=== PATIENT | male | born 1995 | race Caucasian/White ===

== ENCOUNTER 2024-03-03 07:35 | Emergency (ER) | payer OTHER, SELFPAY ==
[2024-03-03 07:35] VITALS: BP 177/120; PULSE 82; RESP 16; TEMP 36.2; O2SAT 97; BMI 26.4
--- NOTE | 2024-03-03 07:53 | CT_ITS ---
STUDY: CT ABDOMEN AND PELVIS WITH CONTRAST REASON FOR EXAM: Male, 28 years old. Right lower quadrant abdominal pain RADIATION DOSAGE (If Supplied By Facility): CTDIvol = ( 11.96 ) mGy, DLP = ( 579.21 ) mGycm TECHNIQUE: Transaxial images were obtained from the dome of the diaphragm to the symphysis pubis without oral contrast. IV 100mL Isovue-370 was administered. Sagittal and coronal images were reconstructed. Individualized dose optimization techniques were used for this CT. COMPARISON: None. FINDINGS: The visualized lung bases are unremarkable. The visualized portions of the heart are within normal limits. Normal liver. Normal gallbladder and extrahepatic biliary system. Normal spleen. Normal pancreas. Normal bilateral adrenal glands. Normal right kidney. Normal left kidney. Normal visualized stomach. There is evidence of some potential wall thickening of the terminal ileum as well as normality of the cecum and ascending colon with increased markings in the surrounding mesenteric fat. There is evidence of mesenteric adenopathy in the right lower quadrant. Findings are suggestive of inflammatory bowel disease. The appendix is not seen with certainty. Normal abdominal aorta. Normal inferior vena cava. Normal retroperitoneum. Normal urinary bladder. Normal abdominal wall. Normal osseous structures. CT/Abdomen/Pelvis W IV Cont ONLY IMPRESSION: Findings suggestive of a inflammatory bowel disease involving the terminal ileum and cecum and descending colon. Mesenteric adenitis. Electronically Signed: Isidro Emanuel MD at 9:01 EDT ,
--- NOTE | 2024-03-03 07:54 | EX.ED.DYSGE1 ---
HPI History of Present Illness Chief Complaint: Abd Pain Detail of Chief Complaint: Abdominal pain with diarrhea Informant: patient and spouse/S.O. Onset/Context/Timing Onset: Days (Onset Sunday) Context: Sudden Onset Timing: Continuous and Waxes and wanes Quality: Discomfort with sensation of feeling bloated Location: Maximum tenderness right lower quadrant Current Severity: Mild Maximum Severity: Moderate Worsened by: Nothing specific Relieved by: Nothing Associated Symptoms Associated Symptoms: Nausea and diarrhea that started Sunday. Narrative Narrative: Patient is a 28-year-old male. Patient had viral-like upper respiratory infections 1 week prior to the onset of his abdominal pain and nausea with diarrhea. Patient states Sunday evening he had 2 large loose watery stools. He did not notice any blood or mucus. He had 3 loose stools on Sunday and 2 already this morning. There is no history of Crohn's disease or ulcerative colitis in the family. He states his appetite is diminished. He denies fever or chills. He denies respiratory or cardiac symptoms. He denies urologic symptoms. He denies back pain or any referred pain. He states food he ate Sunday did not taste unusual to him. Prior similar symptoms: No Recent Illness/Hospitalization: No PFSH PFSH Medical History no medical history no medical history Home Medications ?Medication ?Instructions ?Recorded ?Last Taken ?Type ciprofloxacin HCl 500 mg tablet 500 mg PO BID #14 TABLETS 03/03/24 Unknown Rx metronidazole 500 mg tablet 500 mg PO Q8H #21 tabs 03/03/24 Unknown Rx prednisone 20 mg tablet 20 mg PO DAILY #30 tabs 03/03/24 Unknown Rx Allergy/AdvReac Type Severity Reaction Status Date / Time No Known Allergies Allergy Verified 03/03/24 07:35 Family History no significant family his no significant family history Surgical History no surgical history no surgical history Social History (Updated 03/03/24 @ 07:[address] Andrews Salgado MD) household members: spouse Smoking Status: Current every day smoker tobacco type: cigarettes ROS ROS ED Constitutional Constitutional ED: Denies chills, fever(s) or subjective Eyes Eyes: Denies blurry vision or change in vision ENT ENT ED: Denies ear pain, rhinorrhea or sore throat Cardiovascular Cardiovascular: Denies chest pain, palpitations or racing heartbeat Respiratory/Chest Respiratory/Chest: Denies cough, dyspnea or dyspnea on exertion Gastrointestinal Gastrointestinal: Reports abdominal pain, constipation, diarrhea, nausea and other Details: Patient did have constipation prior to diarrhea. He did not take any laxatives. ; Denies melena or vomiting Genitourinary Genitourinary ED: Denies dysuria, hematuria or urinary frequency Musculoskeletal Musculoskeletal: Denies arthralgias, back pain or myalgias Integumentary Denies abscess, Abrasions or rash Neurologic Neurologic: Denies weakness Psychiatric Psychiatric: Denies anxiety or depression Hematologic/Lymphatic Hematologic/Lymphatic: Reports systems reviewed and no addt'l complaints, except as documented EXAM Physical Exam Const Vital Signs: 03/03/24 07:35 Temperature 97.2 F L Temperature Source Temporal Pulse Rate 82 Respiratory Rate 16 Blood Pressure 177/120 H Blood Pressure Mean 139 Pulse Ox 97 Oxygen Delivery Method Room Air Positive well nourished and well developed Constitutional Narrative: Patient does not look well. He is in no obvious discomfort. General Appearance ED: well developed; Negative for cyanotic, diaphoretic or pallor HEENT Reports moist mucous membranes HEENT Narrative: Head is atraumatic no cephalic. Ears normal. Nares patent. Eyes PERRL and EOMs intact bilaterally General Eye ED: Negative for pale conjunctiva or scleral icterus Neck no lymphadenopathy, supple and no JVD Resp normal respiratory effort and clear to auscultation bilaterally Cardio regular rate, regular rhythm, S1 normal heart sound, S2 normal heart sound and no murmurs GI no masses; Negative for normal to inspection, nondistended, normoactive bowel sounds, non-tender, non-distended or hepatosplenomegaly GI Narrative: Abdomen slightly tympanitic. Area of most discomfort is in the proximity of McBurney's point with guarding. There is no tenderness to percussion or Rovsing sign. There is no paraspinal megaly. Negative clinical Culver sign. Palpation: soft Back/Spine no CVA tenderness Extremity normal to inspection General Extremety ED: Negative for edema or tenderness General Extremity: Negative for edema Neuro oriented x3, CN's II-XII intact bilaterally and no sensory deficits noted Sensorium / Orientation: alert Psych mental status grossly normal Skin no rashes or lesions noted, no wounds and skin turgor normal General Skin Exam: elasticity normal; Negative for jaundice or pallor MDM MDM MDM Narrative Medical decision making narrative: With initial upper respiratory symptoms prior to GI symptoms and tenderness of McBurney's point need to evaluate for mesenteric adenitis versus atypical presentation of appendicitis. Also on the differential need to consider regional enteritis. There is no family history per patient. Will obtain CBC, electrolyte panel and CT of the abdomen and pelvis with IV contrast. Lab Data Attestation: I reviewed the patient's lab results. Lab results narrative: CBC is normal. Electrolyte panel is remarkable for slight elevation of glucose of 115 with normal CO2 anion gap. Labs: Laboratory Results - last 24 hr 03/03/24 08:10 WBC 6.6 RBC 5.15 Hgb 15.0 Hct 45.0 MCV 87.4 MCH 29.1 MCHC 33.3 RDW Std Deviation 39.0 RDW Coeff of Elif 12.1 Plt Count 257 MPV 9.6 Immature Gran % (Auto) 0.500 Neut % (Auto) 54.9 Lymph % (Auto) 30.2 Hettinger % (Auto) 10.0 Eos % (Auto) 3.9 Baso % (Auto) 0.5 Absolute Neuts (auto) 3.7 Absolute Lymphs (auto) 2.00 Nucleated RBC % 0 Sodium 139 Potassium 4.3 Chloride 109 H Carbon Dioxide 26.0 Anion Gap 4 L BUN 15 Creatinine 0.93 Estim Creat Clear Calc 125.95 Est GFR (MDRD) Af Amer 124 Est GFR (MDRD) Non-Af 102 BUN/Creatinine Ratio 16.1 Glucose 115 H Calcium 9.6 Radiography Diagnostic Testing: Clinical Impression(s) from Imaging Studies Abdomen/Pelvis CT 03/03/24 07:53 IMPRESSION: Findings suggestive of a inflammatory bowel disease involving the terminal ileum and cecum and descending colon. Mesenteric adenitis. Electronically Signed: Isidro Emanuel MD at 9:01 EDT , CT of the abdomen pelvis does not in my opinion reveal evidence of appendicitis. There is evidence of adenitis and inflammation. Will wait for formal radiology interpretation. Findings are can concerning for regional enteritis. Dr. Watson is on for GI. Will discuss case with him. Management Discussion w/another healthcare provider: Environmental Planning Engineer (Spoke with Dr. Watson. He would like patient started on prednisone 20 mg a day and course of metronidazole and ciprofloxacin. Patient to call office and he will be seen in 2 to 3 weeks.) Discharge Plan Triage Chief Complaint: Abd Pain ED Provider: Andrews Salgado Dx/Rx/DC Orders Clinical Impression: Crohn's regional enteritis, Elevated blood-pressure reading without diagnosis of hypertension Instructions: ED Crohn's Disease, ED Hypertension, To Be Confirmed Prescriptions: New prednisone 20 mg tablet 20 mg PO DAILY Qty: 30 0RF ciprofloxacin HCl 500 mg tablet 500 mg PO BID Qty: 14 0RF metronidazole 500 mg tablet 500 mg PO Q8H Qty: 21 0RF Primary Care Provider: Care Physician,No Primary Referrals: Friend,Randell, [Med Staff - Active Staff] - 1-2 Weeks NOT,DEFINED [Non-Staff] - Print Language: Jamaican Disposition Disposition: Home, Self Care
[2024-03-03] MEDS: 0.9% Normal Saline (1000mL) 1,000 ML 125 ML IV (08:09)
[2024-03-03 08:14] LABS: Absolute Neutrophil Count 3.7 X10^3/uL (2.0-7.7); Basophil# 0.03 X10^3/uL; Basophil% 0.5 % (0-1); Eosinophil# 0.26 X10^3/uL; Eosinophils% 3.9 % (0-5); Lymphocyte % 30.2 % (19-41); Mean Corp Hgb Conc 33.3 g/dL (32-36); Mean Corpuscular Hgb 29.1 pg (27.0-32.0); Mean Corpuscular Volume 87.4 fL (80-94); Mean Platelet Vol. 9.6 fl (6.2-12.0); Monocyte# 0.66 X10^3/uL; NRBC Flagged by Analyzer 0 % (0-5); Neutrophil # 3.65 X10^3/uL (2.7-7.7); Neutrophil % 54.9 % (47-70); Platelet Count 257 K/mm3 (150-450); RBC Distribution Width CV 12.1 % (11.6-14.6); Red Blood Count 5.15 M/mm3 (4.6-6.2); White Blood Count 6.6 K/mm3 (4.4-11.0)
[2024-03-03 08:33] LABS: Anion Gap 4 (5-15); BUN 15 mg/dL (7-18); BUN/Creat Ratio 16.1 RATIO (10-20); Calcium,Total 9.6 mg/dL (8.5-10.1); Chloride 109 mmol/L (98-107); Creatinine, Serum 0.93 mg/dL (0.70-1.30); EST Glomerular Filtration Rate 102 mL/min (>60); Est Glom Filt Rate - Afr Amer 124 mL/min (>60); Estimated Creatinine Clearance 125.95 ml/min; Glucose 115 mg/dL (74-106); Potassium 4.3 mmol/L (3.5-5.1); Sodium Level 139 mmol/L (136-145)
[2024-03-03 09:35] VITALS: BP 132/71; PULSE 73; RESP 16; O2SAT 98
[2024-03-03 10:01] VITALS: BP 125/78; PULSE 70; RESP 16; TEMP 36.6; O2SAT 99
== END 2024-03-03 10:07 | disposition home or self-care (01) ==
PROVIDERS: Emergency Provider Emergency Medicine; Visit Provider Emergency Medicine
DX: K50.80 Crohn's disease of both small and large intestine without complications (principal); R03.0 Elevated blood-pressure reading, without diagnosis of hypertension; F17.210 Nicotine dependence, cigarettes, uncomplicated
CPT/HCPCS: 74177; 80048; 85025; 96360; 96361; 99283; J7030; Q9967; A4216

== ENCOUNTER → 2024-03-18 | Outpatient (CLI) | payer OTHER, SELFPAY ==
[2024-03-18 09:13] LABS: Erythrocyte Sedimentation Rate 15 mm/hr (0-20)
[2024-03-18 09:46] LABS: CRP 5.94 mg/L (0.0-3.0)
[2024-03-21 15:08] LABS: Anti-Centromere B Ab <0.2 AI (0.0-0.9); Anti-Chromatin <0.2 AI (0.0-0.9); Anti-Jo <0.2 AI (0.0-0.9); Anti-Scleroderma-70 AB <0.2 AI (0.0-0.9); Anti-dsDNA Ab <1 IU/mL (0-9); Beef <0.10 kU/L (Class 0); Chocolate <0.10 kU/L (Class 0); Codfish <0.10 kU/L (Class 0); Corn 0.14 kU/L (Class 0/I); Egg, Whole <0.10 kU/L (Class 0); Milk (Cow) <0.10 kU/L (Class 0); Mussels <0.10 kU/L (Class 0); Peanut 0.35 kU/L (Class I); Pork <0.10 kU/L (Class 0); RNP Ab <0.2 AI (0.0-0.9); SJOGREN'S Anti-SS-A test < 0.2 AI (0.0-0.9); SJOGREN'S Anti-SS-B test < 0.2 AI (0.0-0.9); Salmon <0.10 kU/L (Class 0); Shrimp <0.10 kU/L (Class 0); Smith Ab <0.2 AI (0.0-0.9); Soybean 0.12 kU/L (Class 0/I); Tuna <0.10 kU/L (Class 0); Wheat 0.22 kU/L (Class 0/I)
[2024-03-21 16:11] LABS: ACCA 19 units (0-90); ALCA 8 units (0-60); AMCA 42 units (0-100); Alpha-1-Globulins 0.3 g/dL (0.0-0.4); Cytoplasmic Ab (C-ANCA) <1:20 titer (Neg:<1:20); Deamidated Gliadin IgA 4 units (0-19); Deamidated Gliadin IgG 2 units (0-19); Endomysial Antibody IgA Negative (Negative); HEPATITIS B SURFACE AG Negative (Negative); Hep C Antibodies Non Reactive (Non Reactive); Hepatitis A IgM Antibody Negative (Negative); Hepatitis B Core AB IgM Negative (Negative); IgG, Quant 1121 mg/dL (603-1613); Immunoglobulin A 181 mg/dL (90-386); Immunoglobulin E 47 IU/mL (6-495); Immunoglobulin G, Subclass 1 490 mg/dL (248-810); Immunoglobulin G, Subclass 2 335 mg/dL (130-555); Immunoglobulin G, Subclass 3 34 mg/dL (15-102); Immunoglobulin G, Subclass 4 70 mg/dL (2-96); Immunoglobulin M 45 mg/dL (20-172); PROEL- TOTAL PROTEIN 7.2 g/dL (6.0-8.5); Perinuclear Ab (P-ANCA) <1:20 titer (Neg:<1:20); QNTFERON TB Mitogen Value > 10.00 IU/mL (.); QNTFERON TB Nil Value 0.06 IU/mL (.); QNTFERON TB1+ Ag Value 0.06 IU/mL (.); QNTFERON TB2+ Ag Value 0.06 IU/mL (.); QNTIFERON TB Positive Criteria Negative (Negative); gASCA 57 units (0-50); t-Transglutaminase IgA <2 U/mL (0-3)
== END | disposition home or self-care (01) ==
PROVIDERS: Referring Provider Internal Medicine Gastroenterology; Visit Provider Internal Medicine Gastroenterology
DX: K50.90 Crohn's disease, unspecified, without complications (principal)
CPT/HCPCS: 36415; 80074; 82784; 82785; 82787; 83516; 84165; 85652; 86003; 86005; 86036; 86037; 86140; 86225; 86235; 86255; 86334; 86480; 86671

== ENCOUNTER 2024-04-18 05:29 | Day surgery (SDC) | payer OTHER, SELFPAY ==
[2024-04-18] VITALS (7 sets, daily range): BP systolic 109–131; BP diastolic 57–84; PULSE 78–101; RESP 16–18; TEMP 36.2–36.4; O2SAT 97–99; BMI 25.4
--- NOTE | 2024-04-18 | COLBX_PTH ---
PATIENT: KARLENE NOWAK LOC: EN U#:[id number] AGE/SX: 28/M ROOM: RE04/18/[address]: Dr. Randell Watson DO : 1995 BED: DIS: 04/18/2024 SPEC #: [id number] RECD: 04/18/24 12:50 STATUS: JHOAN GEOVANNA #: [id number] KIMI: 04/18/24 00:[address]: Randell Watson DEPT: SURGICAL PATHOLOGY RECD BY: Jimmy Rod ENTERED: 04/18/24 12:51 SP TYPE: COLON BX OTHR DR: Krupa Primary Care Phys Tissues: A - Ileum, NOS B - COLON BIOPSY C - Rectum, NOS Procedures: Surgery Specimen Level IV HEADER OPERATION: Colonoscopy with biopsies PRE-OP DIAGNOSIS: Crohn's disease TISSUE SUBMITTED: A- Terminal ileum biopsy, B- Random colon biopsy, C- Rectal polyp biopsy MICROSCOPIC DIAGNOSIS A. Terminal ileum, biopsy: Fragments of small intestinal mucosa, no pathologic diagnosis. B. Colon, random biopsy: Fragments of colonic mucosa, no pathologic diagnosis. C. Rectal polyp, biopsy: Fragments of colonic mucosa, no pathologic diagnosis. Braden 04/21/2024 MICROSCOPIC DESCRIPTION Slides are reviewed. GROSS DESCRIPTION A. Received in fixative is one container labeled with the patient's name and designated Terminal ileum biopsy. The specimen consists of two irregular fragments of light vasquez soft tissue that in aggregate measure 0.6 x 0.3 x 0.1 cm. The specimen is totally submitted in one cassette. B. Received in fixative is one container labeled with the patient's name and designated Random colon biopsy. The specimen consists of multiple irregular fragments of light vasquez soft tissue that in aggregate measure 1.5 x 0.5 x 0.1 cm. The specimen is totally submitted in one cassette. C. Received in fixative is one container labeled with the patient's name and designated Rectal polyp biopsy. The specimen consists of two irregular fragments of light vasquez soft tissue that measures 0.4 x 0.3 x 0.1 cm. The specimen is totally submitted in one cassette. 04/18/2024 [id number]
--- NOTE | 2024-04-18 06:31 | PCM.PRE.AN2 ---
ASA Classification* ASA Classification ASA Classification: 2 Assessment & Plan Anesthesia* Anesthesia Assessment Anesthesia Assessment: Discussed sedation and/or anesthesia options, risks, benefits, and alternatives with patient/parents/legal guardian/POA. Questions invited. The patient/parents/legal guardian/POA seems to understand and agrees to proceed with anesthesia plan. Reviewed the physical assessment, medical history, allergy history and patient home medications list prior to surgery/procedure/anesthetic and documented any changes. Performed airway and anesthesia risk assessments. Anesthesia Type Anesthesia Type: MAC History Source History Obtained from:: Patient and Chart Anesthesia Focused Assessment* Temperature: 97.1 F Pulse Rate: 101 Blood Pressure: 131/84 Respiratory Rate: 16 Pulse Ox: 99 Airway Assessment Mouth opens: >3 cm Mallampati Score: II Teeth Condition: Intact Neck Range of motion (ROM): Full ROM Focused Labs Anesthesia Preop lab: CBC WBC 6.6 K/mm3 (4.4-11.0) 03/03/24 08:10 RBC 5.15 M/mm3 (4.6-6.2) 03/03/24 08:10 Hgb 15.0 g/dL (13.0-16.5) 03/03/24 08:10 Hct 45.0 % (40-54) 03/03/24 08:10 Plt Count 257 K/mm3 (150-450) 03/03/24 08:10 CHEMISTRY Potassium 4.3 mmol/L (3.5-5.1) 03/03/24 08:10 Sodium 139 mmol/L (136-145) 03/03/24 08:10 BUN 15 mg/dL (7-18) 03/03/24 08:10 Creatinine 0.93 mg/dL (0.70-1.30) 03/03/24 08:10 Glucose 115 mg/dL (74-106) H 03/03/24 08:10 COAG Pre-Assessment Diagnosis/Proposed Procedure Planned Operative Procedure(s): COLONOSCOPY Anesthesia History Anesthesia History - bpm architect: Anesthesia History - bpm architect Hx Hospitalization No 04/16/24 09:43 Any Problems With Anesthesia No 04/16/24 09:43 Cholinesterase deficiency No 04/16/24 09:43 You/Your Family Experience No 04/16/24 09:43 fever (hyperthermia) with Relationship Recent Exposure to Contagious No 04/18/24 05:53 Disease Does patient have nerve No 04/16/24 09:43 stimulator Patient instructed to have device shut off --Does patient have Pacemaker No 04/18/24 05:53 or ICD? When Was Last Pacemaker Check QUESTION #4 FULL TEXT: You/Your Family Experience fever (hyperthermia) with Anesthesia Last Oral Intake Last Oral intake: Last Oral Intake NPO since 03:00 04/18/24 05:53 Meds taken in AM with sips of No 04/18/24 05:53 water? Meds patient instructed to take am of surgery PONV PONV - bpm architect: PONV - bpm architect Female No 04/16/24 09:43 HX of Motion Sickness No 04/16/24 09:43 HX of N/V After Surgery No 04/16/24 09:43 Non-Smoker No 04/16/24 09:43 Duration of Surgery greater No 04/16/24 09:43 than 60 minutes Number of Risk Factors PONV Score Height & Weight Height & Weight: Anesthesia: Height & Weight Height 5 ft 11 in 04/18/24 05:53 Weight: 83 kg 04/18/24 05:53 Body Mass Index (BMI) 25.4 04/18/24 05:53 Respiratory Assessment Respiratory Assessment - bpm architect: Respiratory Tract Infection Hx - bpm architect Hx Respiratory Tract Infection No 04/16/24 09:43 STOP Sleep Apnea STOP Sleep Apnea - bpm architect: STOP Sleep Apnea - bpm architect Hx Hypertension No 04/16/24 09:43 Hx Sleep Apnea No 04/16/24 09:43 CPAP BIPAP Do you snore loudly (louder No 04/16/24 09:43 than talking or can be heard Do you often feel tired/ No 04/16/24 09:43 fatigued/ sleepy during daytime? Has anyone observed you stop No 04/16/24 09:43 breathing during sleep? STOP Results Negative 04/16/24 09:43 QUESTION #5 FULL TEXT : Do you snore loudly (louder than talking or can be heard through closed doors)? Tobacco Use History Tobacco Use History - bpm architect: Tobacco Use History - bpm architect Tobacco Use Smoking Status Current every day smoker 04/16/24 09:43 Hx Tobacco Use Yes 04/16/24 09:43 Years Smoking Packs Smoked per Day Smoking Cessation Date was within the last 15 years Hx Smoking Cessation Date Hx Smoking Cessation Counseling Hematologic Medial History Hematologic Hx - bpm architect: Hematologic Medical Hx - space technologist Hx of Blood Transfusion No 04/16/24 09:43 Hx of Transfusion in last 3 No 04/16/24 09:43 Months Date of Last Transfusion (if within last 3 months) Ever experience any problems No 04/16/24 09:43 with transfusion(s)? Specify any problems Hx of Preganancy in last 3 N/A 04/16/24 09:43 Months Nurse Filling Out Transfusion VCHRISTIN 04/16/24 09:43 & Questions: Date: 04/16/24 04/16/24 09:43 Time: 09:43 04/16/24 09:43 Patient unable to answer at this time (ie. confused, unrespo /Reproduction History /Reproductive History - bpm architect: /Reproductive Hx- bpm architect Hx Now Gestational Age (in weeks): EDC: Hx Hx Para Hx Section SAB PFSH Medical History Alcohol use History of steroid therapy Dietary restriction Gastric reflux Smoker Home Medications ?Medication ?Instructions ?Recorded ?Last Taken ?Type Lactobacillus acidophilus 10 100 mmu cells PO DAILY 04/16/24 Unknown History billion cell capsule (NewFlora) dicyclomine 20 mg tablet 20 mg PO DAILY abdominal pain 04/16/24 Unknown History prednisone 20 mg tablet 20 mg PO QDAY 04/16/24 Unknown History Allergy/AdvReac Type Severity Reaction Status Date / Time No Known Allergies Allergy Verified 04/18/24 05:48 Social History household members: spouse Smoking Status: Current every day smoker tobacco type: cigarettes Review of Systems (Anesthesia) ROS Narrative System reviewed and no additional complaints, except as documented.
--- NOTE | 2024-04-18 07:13 | HP.PCM_ITS ---
History and Physical Date of Admission: 04/18/24 [facility] [address] [place] [address] OFFICE VISIT Date of Service: 03/18/24 MR#: [id number] Acct: [id number] Name: KARLENE NOWAK Rep #: [id number] : 1995 Provider: Randell Watson DO Age/Sex: 28/M Location: [facility] [place] Status: Signed Intake Vital Signs 03/03/2407:35 Height 5 ft 11 in Intake Visit Reasons: Crohn's Allergies No Known Allergies Allergy (Verified 03/03/24 07:35) [facility] Social History (Updated 03/03/24 @ 07:[address] Andrews Salgado MD) household members: spouse Smoking Status: Current every day smoker tobacco type: cigarettes HPI HPI Details: KARLENE NOWAK, is a 28 M who presents to the office today for initial consult. [facility] ED 03.03.24 abd pain - had viral-like upper respiratory infections 1 week prior to the onset of his abdominal pain and nausea with diarrhea. Patient states Sunday evening he had 2 large loose watery stools. He did not notice any blood or mucus. He had 3 loose stools on Sunday and 2 already this morning. abd/pelvis 03.03.24 Findings suggestive of a inflammatory bowel disease involving the terminal ileum and cecum and descending colon. Mesenteric adenitis. *[facility] established 03.18.24 pt reports that he is establishing with [facility] for possible Crohns disease. Pt states that he was given Cipro, flagyl, and prednisone in the hospital, but stopped taking them after a few days because they gave him diarrhea. Pt reports that he is currently having 1 bm per day, does endorse bright red blood in his stool. Pt reports bloating after he eats and before he has a bowel movement. ROS Const Constitutional: No fatigue, fever(s) or weight change ENT ENT: No difficulty swallowing Gastro GI: Positive for bloating, change in bowel habits, diarrhea, excessive flatus and Blood in stool; No abdominal pain, belching, change in stool character, coffee ground emesis, constipation, cramping, heartburn, difficulty swallowing, feeling full early, incontinent of stools, Vomiting blood/hematemesis, loose stools, Black,tarry stools, nausea/dyspepsia, pain with swallowing, vomiting or other Musc Musculoskeletal: No joint pain Skin Skin: No yellowing of the eye or itchy eyes Psych Psychiatric: No anxiety and No depression Endo Endocrine: No fatigue or weight change Aller/Imm Allergy/Immunologic: No itchy eyes Willem/Lymp Hematologic/Lymphatic: No easy bleeding or easy bruising Exam Const General: cooperative and comfortable Nutritional Appearance: average body habitus and well nourished [facility] Head: normal to inspection Ears: hearing grossly normal bilaterally Nose: external nose normal Face and sinus: normal facial exam Mouth: oral mucosae normal Throat: posterior oropharynx normal Eyes General: appearance normal, both eyes and all related structures Neck Neck: normal visual inspection Chest Chest palpation & inspection: normal inspection of the chest and normal palpation of entire chest wall Resp Effort & Inspection: normal respiratory effort Auscultation: Bilateral: Clear to Auscultation Cardio Palpation: normal PMI Rate: regular rate Rhythm: regular rhythm GI Inspection: normal to inspection Auscultation: normal bowel sounds Percussion: normal to percussion Palpation: no hepatosplenomegaly Skin General: no rashes or lesions noted Neuro General: patient alert Extrem General: normal to inspection Psych Affect: normal affect Assessment and Plan Assessment and Plan (1) Crohn's regional enteritis: Status: Inactive Plan: 28-year-old gentleman who presented to the ED with worsening abdominal pain after 2 days of constipation and a recent upper respiratory tract infection. He did not take any antibiotics for his upper Bitely tract infection. He did note worsening right lower quadrant pain radiating to his groin and back. Initi ally in the ED he was worked up for acute appendicitis and that was normal. However the CT scan did show diffuse enteritis involving the ileum extending all the way into the ascending colon. He has no family history of inflammatory bowel disease. He does not take any medicines on a daily basis. He has lost a little bit of weight. He did have some intermittent diarrhea but it was responsive to Imodium therapy. He denies any fevers, nausea, vomiting or diarrhea. He is still having intermittent abdominal pain but is a lot better than it was. He was sent home on prednisone and ciprofloxacin and Flagyl. He only took the medicine for about 4 to 5 days because he started feeling better. Differential diagnosis is typhlitis secondary to infection, inflammatory bowel disease in particular Crohn's disease, Bechet syndrome, medication induced ulcerations in the hindgut. Recommendations: Check IBD SGI, ANCA, IgG4, food allergy panel, SRAVAN, QuantiFERON gold, acute hepatitis profile, ESR, CRP in anticipation for months biologic therapy. He will also need colonoscopy with biopsies of the terminal ileum and colon. Orders: Orders Quantiferon TB-Gold+ Today K50.90 - Crohn's disease, unspecified, without complications CRP Today K50.90 - Crohn's disease, unspecified, without complications Erythrocyte Sed Rate Today K50.90 - Crohn's disease, unspecified, without complications IBD Expanded Profile Today K50.90 - Crohn's disease, unspecified, without complications Celiac AB,Comprehensive Today K50.90 - Crohn's disease, unspecified, without complications Hepatitis Panel Acute Today K50.90 - Crohn's disease, unspecified, without complications SRAVAN Comprehensive Panel Today K50.90 - Crohn's disease, unspecified, without complications ANCA Today K50.90 - Crohn's disease, unspecified, without complications LORENZA + Protein Elect, Serum Today K50.90 - Crohn's disease, unspecified, without complications Allergen, Food Profile 14 Today K50.90 - Crohn's disease, unspecified, without complications Immunoglobulins G/A/M/E Today K50.90 - Crohn's disease, unspecified, without complications IgG Subclasses Today K50.90 - Crohn's disease, unspecified, without complications Medications: Discontinued ciprofloxacin HCl Discontinued Reason: Pt no longer taking 500 mg PO BID 14 TABLETS 0RF metronidazole Discontinued Reason: Pt no longer taking 500 mg PO Q8H 21 tabs 0RF prednisone Discontinued Reason: Pt no longer taking 20 mg PO DAILY 30 tabs 0RF I have examined the patient and the H&P has been reviewed. There are no clinical changes since date of exam.
--- NOTE | 2024-04-18 07:39 | OP.CCLET_ITS ---
04/18/2024 No Primary Care Physician Re : Colonoscopy procedure for Raymundo Casillas Dear Care Physician This procedure was performed on Thursday, April 18, 2024. My impressions and recommendations are as follows: Impressions : - Congested mucosa in the rectum and in the cecum. Biopsied. - Congested mucosa in the terminal ileum. Biopsied. Recommendations : - Discharge patient to home. - Resume previous diet. - Continue present medications. - Await pathology results. - Repeat colonoscopy (date not yet determined) for surveillance based on pathology results. My findings are described in the full procedure note, which is enclosed. If I can be of further assistance, please feel free to contact me at . Sincerely, Randell Watson, 04/18/2024 7:38:41 AM This report has been signed electronically.
--- NOTE | 2024-04-18 07:39 | OP.COLON_ITS ---
Patient Name: Raymundo Casillas Procedure Date: 04/18/2024 6:42 AM Date of : 1995 Age: 28 Procedure: Colonoscopy Indications: Suspected Crohn's disease Providers: Randell Watson DO Referring MD: Randell Watson DO Medicines: Monitored Anesthesia Care Patient Profile: This is a 28 year old male. Refer to note in patient chart for documentation of history and physical. Last Colonoscopy: none. The patient's first colonoscopy is today. Complications: No immediate complications. Procedure: Pre-Anesthesia Assessment: - Prior to the procedure, a History and Physical was performed, and patient medications and allergies were reviewed. The patient is competent. The risks and benefits of the procedure and the sedation options and risks were discussed with the patient. All questions were answered and informed consent was obtained. Patient identification and proposed procedure were verified by the physician in the pre-procedure area. Mental Status Examination: alert and oriented. Airway Examination: normal oropharyngeal airway and neck mobility. Respiratory Examination: clear to auscultation. CV Examination: normal. Prophylactic Antibiotics: The patient does not require prophylactic antibiotics. Prior Anticoagulants: The patient has taken no anticoagulant or antiplatelet agents except for NSAID medication. ASA Grade Assessment: II - A patient with mild systemic disease. After reviewing the risks and benefits, the patient was deemed in satisfactory condition to undergo the procedure. The anesthesia plan was to use monitored anesthesia care (MAC). Immediately prior to administration of medications, the patient was re-assessed for adequacy to receive sedatives. The heart rate, respiratory rate, oxygen saturations, blood pressure, adequacy of pulmonary ventilation, and response to care were monitored throughout the procedure. The physical status of the patient was re-assessed after the procedure. After I obtained informed consent, the scope was passed under direct vision. Throughout the procedure, the patient's blood pressure, pulse, and oxygen saturations were monitored continuously. The Colonoscope was introduced through the anus and advanced to the terminal ileum. The colonoscopy was performed without difficulty. The patient tolerated the procedure well. The quality of the bowel preparation was adequate. Scope In: 7:22:21 AM Scope Withdrawal Time 0 hours 7 minutes 5 seconds Scope Out: 7:33:18 AM Total Procedure Duration Time 0 hours 10 minutes 57 seconds Findings: The perianal and digital rectal examinations were normal. An area of mildly congested mucosa was found in the rectum and in the cecum. Biopsies were taken with a cold forceps for histology. Verification of patient identification for the specimen was done. Estimated blood loss was minimal. A patchy area of the terminal ileum was congested. Biopsies were taken with a cold forceps for histology. Verification of patient identification for the specimen was done. Estimated blood loss was minimal. Impression: - Congested mucosa in the rectum and in the cecum. Biopsied. - Congested mucosa in the terminal ileum. Biopsied. Recommendation: - Discharge patient to home. - Resume previous diet. - Continue present medications. - Await pathology results. - Repeat colonoscopy (date not yet determined) for surveillance based on pathology results. Procedure Code(s): --- Professional --- 29786, Colonoscopy, flexible; with biopsy, single or multiple CPT copyright 2021 [employer]. All rights reserved. The codes documented in this report are preliminary and upon splunk developer review may be revised to meet current compliance requirements. Randell Watson DO 04/18/2024 7:38:41 AM This report has been signed electronically. Number of Addenda: 0 Note Initiated On: 04/18/2024 6:42 AM
--- NOTE | 2024-04-18 07:41 | PCM.POST.ANE ---
Anesthesia: Postop Eval I Current Vital Signs Temperature: 97.5 F Pulse Rate: 91 Blood Pressure: 119/57 Respiratory Rate: 16 Pulse Ox: 97 Oxygen Delivery Method: Room Air Assessment Airway patent: Yes Spontaneous unlabored respirations: Yes Mental status: Awake nausea: No Vomiting: No Anesthesia Complication: No Fluid Hydration Crystalloid volume administer (ml): 60 Total IV fluid infused: 60 Progress Note Anesthesia document: Postop Eval 1 completed: Yes
--- NOTE | 2024-04-18 07:49 | PCM.POSTANE2 ---
Anesthesia Postop Eval I Sum Postop Eval Completion status Anesthesia document: Postop Eval 1 completed: Yes Anesthesia Postop Eval I Summary Anesthesia Postop Eval I Summary: Anesthesia Postop Eval I: Assessment Summary Airway patent Yes 04/18/24 07:43 [email or web address] Spontaneous unlabored Yes 04/18/24 07:43 [email or web address] respirations Mental status Awake 04/18/24 07:43 [email or web address] nausea No 04/18/24 07:43 [email or web address] Vomiting No 04/18/24 07:43 [email or web address] Anesthesia Postop Eval I: Fluid Summary Crystalloid volume administer 60 04/18/24 07:43 [email or web address] (ml) Colloids volume administered ( ml) Blood Product volume administered (ml) Total IV fluid infused 60 04/18/24 07:43 [email or web address] Anesthesia Postop Eval I: Summary Notes Anesthesia Complication No 04/18/24 07:43 [email or web address] Anesthesia Complication Comment: Post-operative progress note Anesthesia: Postop Eval II Evaluation Mental status: Awake Pain Level: 0 nausea: No Vomiting: No
== END 2024-04-18 08:04 | disposition home or self-care (01) ==
LOC: EN 05:31 → AC 05:31
PROVIDERS: Visit Provider Internal Medicine Gastroenterology
PROC: 0DJD8ZZ Inspection of Lower Intestinal Tract, Via Natural or Artificial Opening Endoscopic (ICD-10-PCS; CPT 45378; principal; 2024-04-18 06:25)
DX: R10.31 Right lower quadrant pain (principal); R19.4 Change in bowel habit; F17.210 Nicotine dependence, cigarettes, uncomplicated
CPT/HCPCS: 45380; 88305; A4216; J2405